=== PATIENT | female | born 1980 | race Hispanic/Latino ===

== ENCOUNTER → 2018-08-29 | Outpatient (CLI) | payer MEDICAID | END | disposition home or self-care (01) | LOC: RAH 08:59 | PROVIDERS: ATTEND Surgery | DX: R10.9 Unspecified abdominal pain (principal) | CPT/HCPCS: 76705 ==

== ENCOUNTER → 2018-09-04 | Outpatient (CLI) | payer MEDICAID ==
[~2018-09-04] VITALS: Ht 2.5 cm; Wt 102.1 kg
--- NOTE | 2018-09-04 12:32 | NUR ---
Bariatric Nutrition Counseling: Visit /: Pt seeking nutrition guidance for assistance in lifestyle change in order to do bariatric surgery to increase quality of life and increase physical energy. Pt states she has not been able to lose weight due to her PMH of PCOS. Pt also reports limited physical activity as per OBGYN's order due to her PCOS. Physical activity reported was walking at a normal pace 3x/wk around the park. Pt's 24hour food recall demonstrates unbalanced meals with high sodium intake. RD concerns over daily diet has been addressed. RD has reviewed the major food groups with pt and multiple examples of balanced meals have been reviewed. Pt has been encouraged to chose foods from every food group when preparing her meals with a high focus on vegetables. Pt states dislikes to most vegetables, RD has emphasized the importance of dietary lifestyle change to increase quality of life. Pt has also been encouraged to consume less red meat and more chicken/fish. Pt also states she has had an 8lb wt loss in the past 6wks since she stopped drinking soda and eating bread/tortillas. RD has used current wt loss as encouragement to continue in dietary-lifestyle changes. Pt has set 3 goals to work on in the upcoming month and review with RD in follow up visit: 1) drink more water. 2) Eat three balanced meals per day 3) lose 10lbs Pt has been informed not to focus on wt loss due to possible disappointments and fails throughout her 6 month preop journey. PARTH has encouraged pt to focus on goal #1 and #2 to begin shifting to the lifestyle goal she is striving for. Addendum: 09/04/18 at [address] RD Amended: Links added.
== END | disposition home or self-care (01) ==
LOC: DTH 09:26
PROVIDERS: ATTEND Surgery
DX: E66.01 Morbid (severe) obesity due to excess calories (principal); E11.9 Type 2 diabetes mellitus without complications
CPT/HCPCS: 97802

== ENCOUNTER → 2018-10-05 | Outpatient (CLI) | payer MEDICAID ==
--- NOTE | 2018-10-05 10:15 | NUR ---
Bariatric Nutrition Consult Visit 08/15: Pt with met goal of increasing water intake. Pt has also stopped drinking soda and has been for the past 2 weeks. Pt continues to attempt to balance meals with all food groups, however finds it difficult d/t always being on the run. Pt continues to skip breakfast d/t sleeping in until late morning and leaving home in a angel. Pt had a 2lb weight gain since previous visit. Pt reports she has resumed walking for 30mins at the park 3x/wk at a moderate pace where she is unable to hold a conversation with her outdoor adventure guides. Pt's 24hr recall continues to consist of unbalanced meals. RD has provided pt with printed materials on "Power Up With Breakfast" for tips on how to incorporate a smart and balanced meal in the morning. Pt has also been encouraged to batch cook for eating on the go and meet her busy lifestyle. Pt has verbalized understanding. Pt has also been encouraged to plan her meals according to where she will be on her daily errands and attempt to chose healthier options. RD has also encouraged pt to take a multivitamin and increase physical activity to 5x/wk. Pt has set 3 goals to work on in the upcoming month to review with pt in the f/u visit. 1) eat more veg 2) eat breakfast 3) Go to sleep earlier and wake up earlier RD's contact information has been provided for any f/u questions pt may have. Addendum: 10/05/18 at [address] RD Amended: Links added.
== END | disposition home or self-care (01) ==
LOC: DTH 10:11
PROVIDERS: ATTEND Surgery
DX: E11.9 Type 2 diabetes mellitus without complications (principal); E66.09 Other obesity due to excess calories
CPT/HCPCS: 97803

== ENCOUNTER → 2018-10-25 | Outpatient (CLI) | payer MEDICAID ==
--- NOTE | 2018-10-25 15:30 | NUR ---
Bariatric Follow-up Patient with early arrival to appointment. Patient updated RD on monthly goals. Patient completed goal of dietary recommendation to eat breakfast by eating oatmeal for breakfast each day. Oatmeal is prepared with water, no sweeteners and no toppings as patient states does not like sweet foods. Patient improved goal of waking up earlier to have a more fulfilling day by wake up two hours earlier than her norm each day. Patient was satisfied with this and believes it is a goal she can stick to. Patient also attempted to eat more vegetables and she improved on this by eating more lettuce and tomatoes. Patient was also stated to enjoy sweet traylor peppers by adding to foods throughout the day. In addition, patient has begun to include a multivitamin in her daily diet as recommended by RD. Patient has also increased her physical activity of walking from three times a week to four times a week for a duration of about fifteen minutes. Noted, duration of exercise decreased by fifteen minutes this visit from previous visit. Patient says she walks vigorously as patient is out of breath by the end of the walk. Patient and RD discussed challenges and goals to eat regular meals as patient describes low appetite as she is busy throughout the day. RD provided dietary recommendations such as snacking at consistent times to promote improved appetite and healthy eating. Patient was receptive and optimistic about setting and attaining new goals. RD provided educational handouts: Healthy Eating on the Run (As patient maintains busy lifestyle) and Healthy Snacking for Adults and Teens. Patient by next appointment plans to 1) Increase exercise time by 15mins more each day 2) Continue to drink more water and 3) Incorporate snacks between meals for digestive stimulation and overall health. Addendum: 10/25/18 at [address] RD Amended: Links added.
== END | disposition home or self-care (01) ==
LOC: DTH 10:00
PROVIDERS: ATTEND Surgery
DX: E11.9 Type 2 diabetes mellitus without complications (principal); E66.09 Other obesity due to excess calories
CPT/HCPCS: 97803

== ENCOUNTER → 2018-11-29 | Outpatient (CLI) | payer MEDICAID, SELFPAY ==
--- NOTE | 2018-11-29 12:07 | NUR ---
Bariatric Nutrition Consult Visit 10/13 Initiated visit with review of goals. Patient remains with 15-minutes of walking three times per week. Patient also incorporated healthy snacking with carrots for afternoon snack. Patient discusses effects of waking up earlier which causes patient to sleep at a more reasonable time at night. Patient motivated by impact of lifestyle change on energy levels during the day and readiness for sleep at bed time. Patient with no mention of increasing water intake, as this was a previous goal; RD to follow up with next visit. Patient reports discouragement with minimal weight change despite measures taken to improve lifestyle. RD discussed importance of consistent lifestyle change with emphasis on healthy living. Patient remains enthusiastic about improved quality of life through procedure. RD discussed stress as a factor that may inhibit weight loss as patient expresses very easily stressed, high level of anxiety. Patient also discussed difficulty of eating only lettuce as greens, to which RD encouraged to include a variety of other vegetables and provided a handout with tips to incorporate more fruits and vegetables and also a Salad - building handout that lists a variety of vegetables/leafy greens. Patient encouraged in goal writing to work on 1) Stress management, 2) Increasing exercise to 5 times a week rather than 3 days only, and 3) Incorporating more vegetables in her diet. RD contact information provided for any f/u questions patient may have. Addendum: 11/29/18 at [address] RD Amended: Links added.
== END | disposition home or self-care (01) ==
LOC: DTH 09:12
PROVIDERS: ATTEND Surgery
DX: E11.9 Type 2 diabetes mellitus without complications (principal); E66.09 Other obesity due to excess calories
CPT/HCPCS: 97803

== ENCOUNTER → 2018-12-28 | Outpatient (CLI) | payer MEDICAID, SELFPAY ==
--- NOTE | 2018-12-28 16:08 | NUR ---
Bariatric Follow up Visit 11/12 RD reviewed goals with Pt. Pt reports success in working on stress management through reading/having quiet time and also she has enjoyed going to the park with and pet dogs. Pt also began walking for duration of 25-30mins, 5 days a week at park visits. Pt also has incorporated more vegetables with meals and states likes raw spinach and other spring mix greens. Pt with challenge this past week d/t in the family. Pt also reports she is always busy helping out others which may add to stress and unhealthy eating at times. RD with concern as Pt expresses she does not eat when really busy for fear of eating something unhealthy "on-the-go", however Pt was counseled the importance of eating vs not eating at all by MD. Pt with Vitamin D deficiency and Anemia as per MD. Pt currently takes prescribed Iron supplement. Pt states discouraged to take multivitamin d/t taking Gastritis medications. Pt encouraged to take chewable/gummy multivitamins to which Pt agrees is more doable. RD discussed meal preparation with Pt. Pt responded with familiarity of meal prep delivery boxes and agrees that this is something worth trying as it will encourage Pt to meal prep on her own. Pt states she is also encouraged to meal prep/cook more as 11-yr old daughter is on summer vacation. Pt has set goals to accomplish in one month's time to: 1) Implement other cardio exercises to alternate with walking 2) Drink more water 3) Prepare for surgery by reviewing and prepping for Pre-Op diet. Upon follow up, RD to review goals and Pre-Op diet education. Pt has RD contact information. Addendum: 12/28/18 at [address] RD Amended: Links added.
== END | disposition home or self-care (01) ==
LOC: DTH 12-27 15:07
PROVIDERS: ATTEND Surgery
DX: E11.9 Type 2 diabetes mellitus without complications (principal); E66.01 Morbid (severe) obesity due to excess calories
CPT/HCPCS: 97803

== ENCOUNTER → 2019-02-05 | Outpatient (CLI) | payer SELFPAY ==
--- NOTE | 2019-02-05 11:10 | NUR ---
Bariatric Follow up Visit 12/13 Pt with 1# wt loss since last visit. Pt reports major stress within last month in which Pt with decreased appetite, lack of sleep x2 wks. Pt saw MD for concerns d/t stomach pain. At time of MD visit (2 weeks ago), Pt lost 10lbs. MD prescribed medication to aid with anxiety and gastritis. Pt feeling better at time of nutrition consult and back on track with eating and physical exercise. Pt has maintained physical activity of walking in the park, 5 times per week, for 30 mins and drinking water. Pt still needing improvement in meal planning and incorporating more vegetables in her daily diet. Pt remains with on-the-go lifestyle, eating out often. RD to reinforce meal planning strategies at pre-op visit, as Pt remains motivated to implement improved lifestyle habits and looks forward to improved quality of life following the procedure. Pt has set goals to accomplish prior to surgery: 1) Meal planning for on-the-go lifestyle 2) Incorporate more vegetables 3) Preview Nutritional Guidelines for Bariatric Surgery Addendum: 02/05/19 at [address] RD Amended: Links added.
== END | disposition home or self-care (01) ==
LOC: DTH 10:03
PROVIDERS: ATTEND Surgery
DX: E66.01 Morbid (severe) obesity due to excess calories (principal); E11.9 Type 2 diabetes mellitus without complications
CPT/HCPCS: 97803

== ENCOUNTER → 2019-03-12 | Outpatient (CLI) | payer SELFPAY ==
--- NOTE | 2019-03-12 16:30 | NUR ---
Bariatric procedure Dietary Pre-Op Education Pt pending Pre-Op authorization approval. Preparatory Pre-OP education provided. PAR[facility] reviewed Bariatric Meal Planning guidelines with emphasis on decreased sugar intake, multivitamin concerns, and adequate protein intake. PARTH reviewed Bariatric Phase Diet - Phases I-V with Pt. Pt with multiple questions. PARTH answered all questions. PARTH provided contact information and encouraged Pt to notify as questions and concerns arise. Pt to begin Clear Liquid diet 1 week prior to procedure when procedure is scheduled. Addendum: 03/12/19 at [address] RD Amended: Links added.
== END | disposition home or self-care (01) ==
LOC: DTH 13:15
PROVIDERS: ATTEND Surgery
DX: E66.09 Other obesity due to excess calories (principal); E11.9 Type 2 diabetes mellitus without complications
CPT/HCPCS: 97803